=== PATIENT | female | born 1960 | race Hispanic/Latino ===

== ENCOUNTER 2018-05-23 08:22 | Day surgery (SDC) | payer OTHER ==
[2015-05-06 13:31] VITALS: BMI 18.8
[2018-05-23 09:09] LABS: BASO # 0.04 K/mm3 (0.0-2.0); EOS # 0.1 (0.0-0.7); EOS % 3.2 % (1.5-5.0); HEMOGLOBIN 14.6 g/dL (12.0-16.0); LYMPH % 24.8 % (22.0-35.0); MEAN CELL VOLUME 85.8 fl (80.0-105.0); MEAN CORPUSCULAR HEMOGLOBIN 28.9 pg (25.0-35.0); MEAN CORPUSCULAR HGB CONC 33.6 g/dl (31.0-37.0); MEAN PLATELET VOLUME 11.1 fl (7.0-11.0); MONO # 0.4 (0.1-0.6); MONO % 10.9 % (1.0-6.0); RBC 5.06 10^6/uL (3.5-6.1); RED CELL DISTRIBUTION WIDTH 14.4 % (11.5-14.5)
[2018-05-23 09:11] VITALS: TEMP 97.5
[2018-05-23 09:20] LABS: ALB/GLOB RATIO 1.4 (1.1-1.8); ALBUMIN 4.6 g/dL (3.0-4.8); ALT/SGPT 22 U/L (7-56); AST/SGOT 33 U/L (14-36); BLOOD UREA NITROGEN 12 mg/dL (7-21); CALCIUM 10.1 mg/dL (8.4-10.5); GFR NON-AFRICAN AMERICAN > 60; HDL CHOLESTEROL 57 mg/dL (29-60)
[2018-05-23 09:31] LABS: LDL CHOLESTEROL 105 mg/dL (0-129)
[2018-05-23 09:42] LABS: FREE T4 0.92 ng/dL (0.78-2.19)
[2018-05-23] MEDS ORDERED: Propofol 10 mg/ml Inj (20 ML) ONE (11:30)
[2018-05-23] MEDS ORDERED: ePHEDrine 50 mg/ml Inj ONE (12:35)
[2018-05-23] MEDS ORDERED: Sodium Chloride 0.9% 1,000 ML IV SCH (12:45)
[2018-05-23 12:54] VITALS: RESP 17
[2018-05-23 13:12] VITALS: PULSE 60; O2SAT 100
--- NOTE | 2018-05-23 15:09 | CT ---
Date of service: 05/23/2018 PROCEDURE: CT Chest, Abdomen and Pelvis with intravenous contrast HISTORY: colon cancer abdominal pain COMPARISON: 05/07/2015 TECHNIQUE: IV dose administered: 100 cc of Omni 350 Radiation dose: Total exam DLP = 294.44 mGy-cm. This CT exam was performed using one or more of the following dose reduction techniques: Automated exposure control, adjustment of the mA and/or kV according to patient size, and/or use of iterative reconstruction technique. FINDINGS: CT CHEST WITH CONTRAST: LUNGS: Clear. No nodule, mass or consolidation. MEDIASTINUM: Unremarkable. Normal caliber aorta and pulmonary arterial trunk. No aortic dissection. Normal size heart. LYMPH NODES: Unremarkable. PLEURA: Unremarkable. No pneumothorax. No pleural fluid. BONES: Unremarkable. OTHER FINDINGS: None. CT ABDOMEN AND PELVIS: LIVER: Unremarkable. No gross lesion or ductal dilatation. There is a stable appearing cyst in the posterior right lobe measuring 6 mm diameter. GALLBLADDER AND BILE DUCTS: Unremarkable. PANCREAS: Unremarkable. No gross lesion or ductal dilatation. SPLEEN: Unremarkable. ADRENALS: Unremarkable. No mass. KIDNEYS AND URETERS: Unremarkable. No hydronephrosis. No solid mass. VASCULATURE: No aortic atherosclerotic calcification or mural plaque present. Unremarkable. No aortic aneurysm. BOWEL: Unremarkable. No obstruction. No gross mural thickening. APPENDIX: Normal appendix. PERITONEUM: Unremarkable. No free fluid. No free air. LYMPH NODES: Unremarkable. No enlarged lymph nodes. BLADDER: Unremarkable. REPRODUCTIVE: Unremarkable. BONES: There is disc degeneration at L2-3 with some bony sclerosis of the vertebral endplates and anterior osteophytes. OTHER FINDINGS: None. IMPRESSION: Negative study. No evidence of metastatic disease
[2018-05-23 17:52] VITALS: BP 99/55
== END 2018-05-23 14:25 | disposition home or self-care (01) ==
LOC: ENDO 08:22
PROVIDERS: ATTEND Internal Medicine Gastroenterology
DX: Z12.11 Encounter for screening for malignant neoplasm of colon (principal); K52.831 Collagenous colitis; K57.30 Diverticulosis of large intestine without perforation or abscess without bleeding; K64.8 Other hemorrhoids; K63.89 Other specified diseases of intestine; Z85.038 Personal history of other malignant neoplasm of large intestine; Z90.49 Acquired absence of other specified parts of digestive tract; Z92.21 Personal history of antineoplastic chemotherapy; Z92.3 Personal history of irradiation; Z88.5 Allergy status to narcotic agent
CPT/HCPCS: 36415; 45380; 71260; 74177; 80053; 80061; 82378; 84439; 84443; 85025; 87324; 88305; J2704; J7030